=== PATIENT | female | born 1975 | race Caucasian/White ===

== ENCOUNTER → 2019-01-15 | Outpatient (CLI) | payer BC ==
[~2019-01-15] MED LIST: AZEL23SP NS; PROP20TA PO; RIZA10TA PO; TRAZ-86 PO
--- NOTE | 2019-01-15 17:45 | KCIC ---
Bilateral digital screening mammograms with 3-D tomosynthesis: Reason for examination: Routine screening. Comparison is made to previous study dated 07/08/2016. Bilateral mammograms in CC and oblique projections were obtained with 2-D imaging and 3-D tomosynthesis imaging on a Siemens Inspiration unit and reviewed on the workstation. Interpretation was made with the benefit of CAD. The skin and nipples show no abnormalities. No abnormal axillary lymph nodes are seen. The breast parenchyma shows scattered fatty and fibroglandular density. (Breast density: Category B.) There are no dominant masses, suspicious calcifications or architectural distortion. Impression: No evidence of malignancy. Recommend routine screening. BI-RAD Category 1: Negative. "Our facility is accredited by the [employer] Mammography [employer]." This patient's information has been entered into a reminder system for the patient to be notified with the results of her examination and a target date for the next mammogram. Electronically signed by: Melissa Rodriguez MD (01/15/2019 5:42 PM) [id number]
== END | disposition home or self-care (01) ==
LOC: KCIC MAMMO 08:18
PROVIDERS: ATTEND Obstetrics & Gynecology
DX: Z12.31 Encounter for screening mammogram for malignant neoplasm of breast (principal)
CPT/HCPCS: 77063; 77067

== ENCOUNTER → 2020-01-21 | Outpatient (CLI) | payer BC ==
[~2020-01-21] MED LIST changes: +TRAZ-123 PO; -TRAZ-86 PO
--- NOTE | 2020-01-21 15:03 | KCIC ---
Bilateral digital screening mammograms with 3-D tomosynthesis: Reason for examination: Routine screening. Comparison is made to previous studies dated 01/15/2019 and 07/08/2016. Bilateral mammograms in CC and oblique projections were obtained with 2-D imaging and 3-D tomosynthesis imaging on a Siemens Inspiration unit and reviewed on the workstation. Interpretation was made with the benefit of CAD. The skin and nipples show no abnormalities. No abnormal axillary lymph nodes are seen. The breast parenchyma shows scattered fatty and fibroglandular density. (Breast density: Category B.) There continues to be a small 1 cm circumscribed nodule at the 2:00 C position of the left breast which is stable. There are no new dominant masses, suspicious calcifications or architectural distortion. Impression: No evidence of malignancy. Recommend routine screening. BI-RAD Category 2: Benign. "Our facility is accredited by the [employer] Mammography [employer]." This patient's information has been entered into a reminder system for the patient to be notified with the results of her examination and a target date for the next mammogram. Electronically signed by: Melissa Rodriguez MD (01/21/2020 3:00 PM) [id number]
== END | disposition home or self-care (01) ==
LOC: KCIC MAMMO 08:12
PROVIDERS: ATTEND Family Medicine
DX: Z12.31 Encounter for screening mammogram for malignant neoplasm of breast (principal); N63.21 Unspecified lump in the left breast, upper outer quadrant
CPT/HCPCS: 77063; 77067

== ENCOUNTER → 2020-12-03 | Outpatient (CLI) | payer BC ==
--- NOTE | 2020-12-03 13:55 | RAD ---
EXAM: ABDOMINAL ULTRASOUND. HISTORY: Abdominal pain. COMPARISON: None. FINDINGS: Sonographic evaluation of the abdomen was performed. The liver appears normal in parenchymal echotexture. There are no focal lesions. The spleen measures cm. The gallbladder is surgically absent. The common duct measures 7 mm. The visualized portions of the h ead of the pancreas reveal no abnormality. The right kidney measures 9.9 x 5.5 x 5.2 cm. Cortical thickness and echogenicity are preserved. Ther e is no hydronephrosis. The left kidney measures 11.6 x 5.3 x 5.1 cm. Cortical thickness and echogeni city are preserved. There is no hydronephrosis. The visualized portions of the abdominal aorta and inferior vena cava are grossly patent and normal i n caliber. IMPRESSION: 1. Unremarkable examination of the abdomen post cholecystectomy. EXAM: Pelvic Ultrasound Complete INDICATION: Reason: ABDOMEN PELVIS PAIN. History of endometriosis with hysterectomy ? TECHNIQUE: Real-time ultrasound of the pelvis with permanent freeze-frame documentation. COMPARISON:?None. ? FINDINGS: ? UTERUS:?Uterus not visualized, consistent with history of previous hysterectomy. ? RIGHT OVARY/ADNEXA: Not visualized . LEFT OVARY/ADNEXA:?Left ovary 2.1 x 2.0 x 2.9 cm. ?Complex mass in the left ovary with loss cystic an d solid components, solid component showing no internal vascularity is noted. There is a ring of incr eased vascular flow around this lesion. Normal ovarian blood flow. ? OTHER:?No evidence of significant pelvic free fluid. ? IMPRESSION: ? Sonographic findings most compatible with a left hemorrhagic ovarian cyst status post previous hyster ectomy and possible right salpingo-oophorectomy. Recommend correlation with beta hCG measurements. If indicated, more detailed characterization of the left ovary could be pursued with MRI to assess for endometriosis or endometrioma. Electronically signed by: Calvin Rodriguez MD (12/03/2020 1:52 PM) [id number]
== END ==
LOC: US 13:26
PROVIDERS: ATTEND Nurse Practitioner
DX: R10.2 Pelvic and perineal pain (principal); Z90.49 Acquired absence of other specified parts of digestive tract
CPT/HCPCS: 76700; 76830; 76856

== ENCOUNTER → 2021-02-09 | Outpatient (CLI) | payer BC ==
--- NOTE | 2021-02-09 16:07 | KCIC ---
Bilateral digital screening mammograms with 3-D tomosynthesis: Reason for examination: Routine screening. Comparison is made to previous studies dated 01/21/2020 and 01/15/2019. Bilateral mammograms in CC and oblique projections were obtained with 2-D imaging and 3-D tomosynthes is imaging on a Siemens Inspiration unit and reviewed on the workstation. Interpretation was made keena dela cruz the benefit of CAD. The skin and nipples show no abnormalities. No abnormal axillary lymph nodes are seen. The breast par enchyma shows scattered fatty and fibroglandular density. (Breast density: Category B.) There continu es to be a small parenchymal asymmetry posterior superiorly in the left breast seen only on oblique v iew which appears to be stable. There are no new dominant masses, suspicious calcifications or niru ectural distortion. Impression: No evidence of malignancy. Recommend routine screening. BI-RAD Category 2: Benign. "Our facility is accredited by the [employer] Mammography Program." This patient's information has been entered into a reminder system for the patient to be notified keena dela cruz the results of her examination and a target date for the next mammogram. Electronically signed by: Melissa Rodriguez MD (02/09/2021 4:05 PM) [email or web address]
== END ==
LOC: KCIC MAMMO 10:25
PROVIDERS: ATTEND Obstetrics & Gynecology
DX: Z12.31 Encounter for screening mammogram for malignant neoplasm of breast (principal); N64.89 Other specified disorders of breast
CPT/HCPCS: 77063; 77067

== ENCOUNTER → 2021-03-09 | Outpatient (CLI) | payer BC ==
[~2021-03-09] MED LIST changes: +IOHEXOL 240 MG/ML 50ML VIAL. PO ONE; +IOHEXOL 300 MG/ML 100ML VIAL. IV ONE
--- NOTE | 2021-03-09 11:07 | KCIC ---
INDICATION: Reason: LLQ pain, hx IBS / Spl. Instructions: 100mL / History: . COMPARISON: Ultrasound December 03, 2020 TECHNIQUE: Axial CT images obtained through the abdomen and pelvis with contrast. One or more of the following individualized dose reduction techniques were utilized for this examinat ion: 1. Automated exposure control; 2. Adjustment of the mA and/or kV according to patient size; 3 . Use of iterative reconstruction technique. FINDINGS: Abdominal aorta is not aneurysmal. Prominence of the intrahepatic bile ducts. Postcholecystectomy changes. Liver is mildly low density. Can be seen with fatty infiltration. No peripancreatic fluid collection. Spleen unremarkable. No left-sided hydronephrosis. Urinary bladder is decompressed. Suspected cyst at left adnexa measuring 21 mm. No right-sided hydronephrosis. No periappendiceal inflammatory changes. No dilated loops of bowel to suggest obstruction. Degenerative changes of hips and spine. Pars defects at L5. Grade 2 anterolisthesis of L5 on S1. Bila teral neural foraminal stenosis at L4-5 and L5-S1 most prominently. IMPRESSION: * No evidence of bowel obstruction or definite active inflammatory changes to the bowel. * Left adnexal cyst. * No hydronephrosis. Electronically signed by: Mat Drake MD (03/09/2021 11:05 AM) [id number]
== END ==
LOC: KCIC CT 09:05
PROVIDERS: ATTEND Internal Medicine Gastroenterology
DX: K76.0 Fatty (change of) liver, not elsewhere classified (principal); N83.8 Other noninflammatory disorders of ovary, fallopian tube and broad ligament; Z90.49 Acquired absence of other specified parts of digestive tract
CPT/HCPCS: 74177; Q9966; Q9967

== ENCOUNTER → 2022-03-29 | Outpatient (CLI) | payer BC ==
[~2022-03-29] MED LIST changes: -IOHEXOL 240 MG/ML 50ML VIAL. PO ONE; -IOHEXOL 300 MG/ML 100ML VIAL. IV ONE
--- NOTE | 2022-03-29 15:52 | KCIC ---
Bilateral digital screening 2-D and 3-D (tomosynthesis) mammogram: Reason for examination: Routine screening. Comparison is made to previous mammograms from 02/09/2021, 01/21/2020, and 01/15/2019. Bilateral mammograms in CC and oblique projections were obtained with 2-D imaging and 3-D tomosynthes is imaging and reviewed on the workstation. Interpretation was made with the benefit of CAD. Findings: Breast density: Category C. The breasts are heterogeneously dense, which may obscure small masses. There are no new suspicious masses, malignant appearing calcifications or architectural distortion. T here is a focal asymmetry in the 3:00 position of the left breast at posterior depth is seen on the 3 -D images which is stable. Impression: No evidence of malignancy. ASSESSMENT: BI-RADS 2. Benign finding. Recommendations: Routine screening mammograms. This patient's information has been entered into a reminder system for the patient to be notified wit h the results of her examination and a target date for the next mammogram. Your patient's mammogram demonstrates that she has dense breast tissue (breast density category C or D), which could hide abnormalities, and if she has other risk factors for breast cancer that have bee n identified, she might benefit from supplemental screening tests that may be suggested by you as her ordering physician. Dense breast tissue, in and of itself, is a relatively common condition. Therefo re, this information is not provided to cause undue concern, but rather to raise your awareness and t o promote discussion with your patient regarding the presence of other risk factors, in addition to d ense breast tissue. Electronically signed by: Gabrielle Del Castillo MD (03/29/2022 3:50 PM) [email or web address]
== END ==
LOC: KCIC MAMMO 09:58
PROVIDERS: ATTEND Family Medicine
DX: Z12.31 Encounter for screening mammogram for malignant neoplasm of breast (principal)
CPT/HCPCS: 77063; 77067